=== PATIENT | male | born 1930 | race Caucasian/White ===

== ENCOUNTER 2017-01-26 11:36 | Observation (INO) | payer MEDICARE ==
[~2017-01-26] VITALS: Ht 182.9 cm; Wt 89.5 kg
--- NOTE | ~2017-01-26 | OR ---
ADMIT: 01/26/2017 RM/LOC: [address] [facility] MR#: [id number] [id number] BERYL HENDERSON [id number] [address] Operative/Delivery Room Report SEX: M AGE: 86 : 1930 Corrected: 01/27/2017 1315 [facility] SURGERY DATE: 01/26/2017 SURGEON: Eldon Wilkinson MD PREOPERATIVE DIAGNOSIS: Upper gastrointestinal bleed post EGD. POSTOPERATIVE DIAGNOSIS: Erosive esophagitis without active bleeding. PROCEDURE: Esophagogastroduodenoscopy. ANESTHESIA: IV general. DESCRIPTION OF PROCEDURE: The patient was taken to the endoscopy suite and placed left side down on his hospital cart. A bite-block was placed and IV sedation was established. The upper endoscope was advanced through the oropharynx into the esophagus without difficulty. The scope was pushed under visualization of the stomach. Air was used to insufflate the stomach. The pylorus was intubated. The first and second portions of the duodenum appeared normal. The scope was withdrawn to the stomach. The antrum, body, and fundus were otherwise unremarkable with the exception of a hiatal hernia visualized. The scope was drawn at the gastroesophageal junction, where there was suggestion of the site of prior bleeding. There was no active bleeding. These were read areas of erosive esophagitis. The scope was withdrawn. The patient remained in stable condition and transferred to recovery. Eldon Wilkinson MD/ vikashl JOB #: [id number] CC: Eldon Wilkinson, Attending Physician Jesse Lombardo, Family Physician Corrected: 01/27/2017 1315 [facility]
[2017-01-27] MEDS ORDERED: METHOTREXATE2.5 MG PO (20:11)
[2017-01-27] MEDS ORDERED: NEURONTIN DPS400 MG PO (20:11)
[2017-01-27] MEDS ORDERED: ASA CHILDREN'S81 MG PO (20:11)
[2017-01-27] MEDS ORDERED: OMEPRAZOLE40 MG PO (20:12)
== END 2017-01-27 10:14 | disposition home or self-care (01) ==
LOC: WOR 11:50 → 6PED 11:50
PROVIDERS: ADMIT Surgery
PROC: 0DJ08ZZ Inspection of Upper Intestinal Tract, Via Natural or Artificial Opening Endoscopic (ICD-10-PCS; principal; 2017-01-26)
DX: K22.10 Ulcer of esophagus without bleeding (principal); J44.9 Chronic obstructive pulmonary disease, unspecified; I10 Essential (primary) hypertension; I25.10 Atherosclerotic heart disease of native coronary artery without angina pectoris; Z95.5 Presence of coronary angioplasty implant and graft; Z98.890 Other specified postprocedural states; Z79.899 Other long term (current) drug therapy